=== PATIENT | male | born 1950 | race Caucasian/White ===

== ENCOUNTER → 2018-02-15 | Outpatient (CLI) | payer MEDICARE, OTHER ==
--- NOTE | 2018-02-15 15:41 | CT ---
EXAMINATION TYPE: CT lumbar spine wo con DATE OF EXAM: 02/15/2018 COMPARISON: HISTORY: pain lower back/ radiates down rt leg CT DLP: 2046.4 mGycm CONTRAST: None TECHNIQUE: CT of the lumbar spine is performed on a spiral scan at 3 mm thick sections. Reconstructed images are performed in the coronal and sagittal planes. FINDINGS: T12-L1: No focal disc herniation or significant disc bulge is evident. No spinal canal stenosis or neural foraminal stenosis is present. L1-L2: No focal disc herniation or significant disc bulge is evident. No spinal canal stenosis or n eural foraminal stenosis is present L2-L3: Inferior plate spurring is present at the L2 level. This has moderate anterior thecal sac comp ression. No AP spinal canal stenosis present. Facet degenerative changes are present. No foraminal na rrowing is present. L3-L4: Degenerative disc changes and vacuum disc phenomenon are present. No spinal canal stenosis is present. Facet degenerative changes present mild bilateral foraminal narrowing is present. L4-L5: No focal disc herniation or significant disc bulge is evident. No spinal canal stenosis or n eural foraminal stenosis is present L5-S1: There is loss of disc height L5-S1. No spinal canal stenosis or neural foraminal stenosis pres ent. Fixation screws are present L5-S1 levels. No spinal canal stenosis or neural foraminal stenosis is pr esent. Vertebral body heights are preserved. IMPRESSION: Moderate degenerative disc changes and vacuum disc phenomenon L3-4. 2 posterior endplate spurring wit h moderate anterior thecal sac compression L2-L3.
== END | disposition home or self-care (01) ==
LOC: RADCTMAIN 13:07
PROVIDERS: ATTEND Orthopaedic Surgery
DX: M47.816 Spondylosis without myelopathy or radiculopathy, lumbar region (principal); M46.06 Spinal enthesopathy, lumbar region
CPT/HCPCS: 72131

== ENCOUNTER → 2018-11-05 | Outpatient (CLI) | payer MEDICARE, OTHER ==
[2018-11-05 08:43] LABS: HCT 41.5 % (39.0-53.0); HGB 13.3 gm/dL (13.0-17.5); MCH 28.8 pg (25.0-35.0); MCHC 32.1 g/dL (31.0-37.0); MCV 89.5 fL (80.0-100.0); Mean Platelet Volume 6.6; Platelet Count 174 k/uL (150-450); RBC 4.64 m/uL (4.30-5.90); RDW 14.3 % (11.5-15.5); WBC 3.9 k/uL (3.8-10.6)
[2018-11-05 08:46] LABS: Appearance,Urine Clear (Clear); Bilirubin,Urine Negative (Negative); Blood,Urine Negative (Negative); Color,Urine Yellow; Glucose,Urine (UA) Negative (Negative); Ketones,Urine Negative (Negative); Leukocyte Esterase,Urine Negative (Negative); Nitrite,Urine Negative (Negative); PH, Urine 5.5 (5.0-8.0); Protein,Urine Negative (Negative); Specific Gravity,Urine 1.017 (1.001-1.035)
[2018-11-05 08:47] LABS: Partial Thromboplastin Time 25.7 sec (22.0-30.0); Prothrombin Time 10.7 sec (9.0-12.0)
[2018-11-05 08:53] LABS: ALT 43 U/L (21-72); AST 34 U/L (17-59); Albumin 4.1 g/dL (3.5-5.0); Alkaline Phosphatase 68 U/L (38-126); Anion Gap 6 mmol/L; Blood Urea Nitrogen 16 mg/dL (9-20); Calcium 9.4 mg/dL (8.4-10.2); Carbon Dioxide 28 mmol/L (22-30); Chloride 106 mmol/L (98-107); Glucose 94 mg/dL (74-99); Sodium 140 mmol/L (137-145); Total Bilirubin 1.2 mg/dL (0.2-1.3); Total Protein 6.1 g/dL (6.3-8.2)
== END | disposition home or self-care (01) ==
LOC: LABPAT 07:34
PROVIDERS: ATTEND Orthopaedic Surgery Sports Medicine
DX: Z01.812 Encounter for preprocedural laboratory examination (principal)
CPT/HCPCS: 36415; 80053; 81003; 85027; 85610; 85730; 87070

== ENCOUNTER → 2023-09-03 | Outpatient (CLI) | payer MEDICARE, OTHER ==
--- NOTE | 2023-09-03 14:32 | CT ---
EXAMINATION TYPE: CT chest wo con DATE OF EXAM: 09/03/2023 COMPARISON: None HISTORY: COUGH CT DLP: 1962 mGycm, Automated exposure control for dose reduction was used. CONTRAST: None TECHNIQUE: Axial images were obtained at 1 mm thick sections at 10 mm intervals. This will limit po rtions of the examination which may not be visualized within the [id number]. Images were obtained in the prone and supine views. FINDINGS: Portion of the thyroid visualized is normal. No suspicious lung nodules or focal infiltrat es are present. No enlarged mediastinal or hilar adenopathy is evident. The ascending aorta diameter at the level o f the main pulmonary artery is 3.7 cm. The main pulmonary artery diameter at the bifurcation is 2.[address] sections are obtained through the upper abdomen. Abdomen is essentially unremarkable. IMPRESSION: 1. No acute pulmonary process evident.
== END | disposition home or self-care (01) ==
LOC: RADCTMAIN 13:53
PROVIDERS: ATTEND Internal Medicine Critical Care Medicine
DX: J84.9 Interstitial pulmonary disease, unspecified (principal)
CPT/HCPCS: 71250

== ENCOUNTER 2024-11-06 12:36 | Emergency (ER) | payer MEDICARE, OTHER ==
--- NOTE | 2024-11-06 13:10 | ED ---
Extremity Problem HPI - General Chief complaint: Extremity Problem,Nontraumatic Stated complaint: R/O DVT-sent by urgent care Time Seen by Provider: 11/06/24 12:54 Source: patient, RN notes reviewed Mode of arrival: ambulatory Limitations: no limitations - History of Present Illness Initial comments: This is a 74-year-old male who presents to the emergency department for right leg pain and swelling. Patient states that this started a couple of days ago. He was sick with a UTI for about 3 days and was very sedentary in bed. He is still on antibiotics for the UTI. Believes that he is taking Keflex, but is not entirely sure. The pain and swelling started shortly after being sedentary. He has noticed some redness towards the ankle. States that he has had leg swelling before, however this is usually bilateral and this time it is only in the right leg. He initially went to urgent care and was advised to come here to rule out a DVT. Denies any history of blood clots. Not taking any blood thinners. Denies any chest pain or shortness of breath. MD Complaint: extremity pain, extremity swelling - Related Data Home Medications Medication Instructions Recorded Confirmed ALPRAZolam [Xanax] 0.25 mg PO BID PRN 11/04/18 11/06/24 Levothyroxine Sodium [Synthroid] 75 mcg PO DAILY 11/04/18 11/06/24 Cephalexin [Keflex] 1,000 mg PO Q12HR 11/06/24 11/06/24 Clindamycin Phosphate 1% Solution 1 applic TOPICAL DAILY 11/06/24 11/06/24 Co-Q-10 (Unknown Dose) 1 tab PO DAILY 11/06/24 11/06/24 Magnesium (Unknown Dose) 1 cap PO BID 11/06/24 11/06/24 RX: Trimethoprim 100 mg PO DAILY PRN 11/06/24 11/06/24 RX: Vitamin B Complex 1 cap PO BID 11/06/24 11/06/24 Vitamin D (Unknown Dose) 1 cap PO BID 11/06/24 11/06/24 Allergies Allergy/AdvReac Type Severity Reaction Status Date / Time shellfish derived [Shellfish] Allergy Swelling Verified 11/06/24 13:30 Review of Systems ROS Statement: Those systems with pertinent positive or pertinent negative responses have been documented in the HPI. ROS Other: All systems not noted in ROS Statement are negative. Past Medical History Past Medical History: Cancer, Hyperlipidemia, Osteoarthritis (OA), Pneumonia, Skin Disorder, Sleep Apnea/CPAP/BIPAP, Thyroid Disorder Additional Past Medical History / Comment(s): roseacea, acne, vitaligo, hx bladder cancer History of Any Multi-Drug Resistant Organisms: None Reported Past Surgical History: Back Surgery, Bladder Surgery, Tonsillectomy Additional Past Surgical History / Comment(s): spinal fusion, tumor removed from bladder, eloy cataracts Past Anesthesia/Blood Transfusion Reactions: Motion Sickness Past Psychological History: No Psychological Hx Reported Past Alcohol Use History: None Reported Past Drug Use History: None Reported - Past Family History Mother Family Medical History: Cancer General Exam Limitations: no limitations General appearance: alert, in no apparent distress Head exam: Present: atraumatic, normocephalic, normal inspection Respiratory exam: Present: normal lung sounds bilaterally. Absent: respiratory distress, wheezes, rales, rhonchi, stridor Cardiovascular Exam: Present: regular rate, normal rhythm Extremities exam: Present: other (Generalized swelling and tenderness to the right lower extremity with some erythema to the distal aspect of the right tib- fib. 2+ DP and PT pulses) Neurological exam: Present: alert, oriented X3, CN II-XII intact Psychiatric exam: Present: normal affect, normal mood Course Vital Signs 11/06/24 11/06/24 11/06/24 12:50 13:46 14:46 Temperature 97.9 F 98.2 F Pulse Rate 69 55 L 63 Respiratory 20 16 18 Rate Blood Pressure 167/80 131/66 135/60 O2 Sat by Pulse 98 98 99 Oximetry Medical Decision Making - Medical Decision Making This is a 74-year-old male who presents to the emergency department for right leg pain and swelling. Was pt. sent in by a medical professional or institution? @ -Urgent care Did you speak to anyone other than the patient for history? @ -No Did you review nursing and triage notes? @ -Yes, and I agree, it is accurate with regards to the patient's symptoms. Were old charts reviewed? @ -No Differential Diagnosis? @ -Differential Musculoskeletal Muscular strain, contusion, ligament sprain, fracture, arthritis, septic arthritis, bursitis, cellulitis, muscle spasm, nerve compression, DVT, arterial occlusion, herpes zoster, electrolyte abnormality, tumor.... This is not meant to be in all inclusive list EKG interpreted by me (3pts min.)? @ -Not obtained X-rays interpreted by me (1pt min.)? @ -Not obtained CT interpreted by me (1pt min.)? @ -Not obtained U/S interpreted by me (1pt. min.)? @ -Duplex ultrasound of the right lower extremity obtained. My interpretation identifies no evidence of a DVT. What testing was considered but not performed? (CT, X-rays, U/S, labs)? Why? @ -None What meds were considered but not given? Why? @ -None Did you discuss the management of the patient with other professionals? @ -No Did you reconcile home meds? @ -No Was smoking cessation discussed for >3mins.? @ -No Was critical care preformed (if so, how long)? @ -No Were there social determinants of health that impacted care today? How? (Homelessness, low income, unemployed, alcoholism, drug addiction, transportation, low edu. Level, literacy, decrease access to med. care, usp, rehab)? @ -No Was there de-escalation of care discussed even if they declined? (Discuss DNR or withdrawal of care, Hospice)? @ -No What co-morbidities impacted this encounter? (DM, HTN, Smoking, COPD, CAD, Cancer, CVA, Hep., AIDS, mental health diagnosis, sleep apnea, morbid obesity)? @ -Osteoarthritis Was patient admitted / discharged? @ -Discharged. Lab work unremarkable. Urinalysis negative for signs of infection. Duplex ultrasound of the right lower extremity demonstrates a Hill's cyst. No evidence of a DVT was visualized. He did have some erythema towards the ankle. Discussed the possibility of an early cellulitis, however he is already on Keflex for the UTI. Advised he continue taking the Keflex as prescribed. Also advised elevation, ice, and compression. If the redness, pain, or swelling worsens, this may be indicative of a cellulitis that needs different treatment. Advised follow-up with his PCP in the next couple of days. Patient discharged home in stable condition. Case discussed with ED attending Dr. Han. Return precautions reviewed in depth, the patient is instructed to return to the emergency department with any new, worsening, or concerning symptoms. Patient verbalized understanding. Undiagnosed new problem with uncertain prognosis? @ -None Drug Therapy requiring intensive monitoring for toxicity (Heparin, Nitro, Insulin, Cardizem)? @ -None Were any procedures done? @ -None Diagnosis/symptom? @ -Hill's cyst, right leg swelling Acute, or Chronic, or Acute on Chronic? @ -Acute Uncomplicated (without systemic symptoms) or Complicated (systemic symptoms)? @ -Uncomplicated Side effects of treatment? @ -None Exacerbation, Progression, or Severe Exacerbation] @ -Not applicable Poses a threat to life or bodily function? @ -No - Lab Data Result diagrams: 11/06/24 13:29 11/06/24 13:29 Lab Results 11/06/24 11/06/24 11/06/24 Range/Units 13:29 13: 13:29 WBC 5.26 (4.50-10.00) 10*3/uL RBC 4.87 (4.40-5.60) 10*6/uL Hgb 15.2 (13.0-17.0) g/dL Hct 43.4 (39.6-50.0) % MCV 89.1 (80.0-97.0) fL MCH 31.2 (27.0-32.0) pg MCHC 35.0 (32.0-37.0) g/dL Plt Count 188 (140-440) 10*3/uL MPV 9.3 L (9.5-12.2) fL Immature Gran % (Auto) 0.2 % Neutrophils % 65.4 % Lymphocytes % 22.4 % Monocytes % 9.5 % Eosinophils % 1.9 % Basophils % 0.6 % Immature Gran # 0.01 (0.00-0.04) 10*3/uL Neutrophils # 3.44 (1.80-7.70) 10*3/uL Lymphocytes # 1.18 (0.90-5.00) 10*3/uL Monocytes # 0.50 (0.20-1.00) 10*3/uL Eosinophils # 0.10 (0.04-0.35) 10*3/uL Basophils # 0.03 (0.00-0.10) 10*3/uL Sodium 138 (137-145) mmol/L Potassium 4.2 (3.5-5.1) mmol/L Chloride 103 (98-107) mmol/L Carbon Dioxide 27 (22-30) mmol/L Anion Gap 8 mmol/L BUN 17 (9-20) mg/dL Creatinine 0.91 (0.66-1.25) mg/dL Est GFR (CKD-EPI)AfAm >90 (>60 ml/min/1.73 sqM) Est GFR (CKD-EPI)NonAf 82 (>60 ml/min/1.73 sqM) Glucose 90 (74-99) mg/dL Plasma Lactic Acid Ishan (0.7-2.0) mmol/L Calcium 9.5 (8.4-10.2) mg/dL Total Bilirubin 1.1 (0.2-1.3) mg/dL AST 32 (17-59) U/L ALT 32 (4-49) U/L Alkaline Phosphatase 63 (38-126) U/L C-Reactive Protein 5.3 H (<1.0) mg/dL Total Protein 6.5 (6.3-8.2) g/dL Albumin 4.2 (3.5-5.0) g/dL Urine Color Light Yellow Urine Appearance Clear (Clear) Urine pH 5.0 (5.0-8.0) Ur Specific Howard 1.007 (1.001-1.035) Urine Protein Negative (Negative) Urine Glucose (UA) Negative (Negative) Urine Ketones Negative (Negative) Urine Blood Negative (Negative) Urine Nitrite Negative (Negative) Urine Bilirubin Negative (Negative) Urine Urobilinogen <2.0 (<2.0) mg/dL Ur Leukocyte Esterase Negative (Negative) 11/06/24 Range/Units 13:29 WBC (4.50-10.00) 10*3/uL RBC (4.40-5.60) 10*6/uL Hgb (13.0-17.0) g/dL Hct (39.6-50.0) % MCV (80.0-97.0) fL MCH (27.0-32.0) pg MCHC (32.0-37.0) g/dL Plt Count (140-440) 10*3/uL MPV (9.5-12.2) fL Immature Gran % (Auto) % Neutrophils % % Lymphocytes % % Monocytes % % Eosinophils % % Basophils % % Immature Gran # (0.00-0.04) 10*3/uL Neutrophils # (1.80-7.70) 10*3/uL Lymphocytes # (0.90-5.00) 10*3/uL Monocytes # (0.20-1.00) 10*3/uL Eosinophils # (0.04-0.35) 10*3/uL Basophils # (0.00-0.10) 10*3/uL Sodium (137-145) mmol/L Potassium (3.5-5.1) mmol/L Chloride (98-107) mmol/L Carbon Dioxide (22-30) mmol/L Anion Gap mmol/L BUN (9-20) mg/dL Creatinine (0.66-1.25) mg/dL Est GFR (CKD-EPI)AfAm (>60 ml/min/1.73 sqM) Est GFR (CKD-EPI)NonAf (>60 ml/min/1.73 sqM) Glucose (74-99) mg/dL Plasma Lactic Acid Ishan 1.3 (0.7-2.0) mmol/L Calcium (8.4-10.2) mg/dL Total Bilirubin (0.2-1.3) mg/dL AST (17-59) U/L ALT (4-49) U/L Alkaline Phosphatase (38-126) U/L C-Reactive Protein (<1.0) mg/dL Total Protein (6.3-8.2) g/dL Albumin (3.5-5.0) g/dL Urine Color Urine Appearance (Clear) Urine pH (5.0-8.0) Ur Specific Howard (1.001-1.035) Urine Protein (Negative) Urine Glucose (UA) (Negative) Urine Ketones (Negative) Urine Blood (Negative) Urine Nitrite (Negative) Urine Bilirubin (Negative) Urine Urobilinogen (<2.0) mg/dL Ur Leukocyte Esterase (Negative) - Radiology Data Radiology results: report reviewed, image reviewed Disposition Clinical Impression: Right leg swelling, Synovial cyst of popliteal space [Hill], right knee Disposition: HOME SELF-CARE Instructions (If sedation given, give patient instructions): Hill Cyst (ED), Leg Edema (ED) Additional Instructions: Return to the emergency department with any new, worsening, or concerning symptoms. Elevate the leg, continue to wear compression stockings, and you can also apply ice to the back of the knee. Anti-inflammatories like ibuprofen or naproxen can help with discomfort and swelling as well. If the redness, pain, or swelling gets worse this could be a sign that it is related to infection, in which case you need to make sure you are reevaluated. Otherwise continue taking the antibiotic you are currently on. Follow up with your primary care provider in 1-2 days. Is patient prescribed a controlled substance at d/c from ED?: No Referrals: Jaxon Valdez MD [Primary Care Provider] - 1-2 days Time of Disposition: 14:36
[2024-11-06 13:56] LABS: Basophils # (A) 0.03 10*3/uL (0.00-0.10); Basophils % (A) 0.6 %; Eosinophils % (A) 1.9 %; HCT 43.4 % (39.6-50.0); HGB 15.2 g/dL (13.0-17.0); Lymphocytes # (A) 1.18 10*3/uL (0.90-5.00); Lymphocytes % (A) 22.4 %; MCH 31.2 pg (27.0-32.0); MCV 89.1 fL (80.0-97.0); Mean Platelet Volume 9.3 fL (9.5-12.2); Monocytes % (A) 9.5 %; Neutrophils # (A) 3.44 10*3/uL (1.80-7.70); Neutrophils % (A) 65.4 %; Platelet Count 188 10*3/uL (140-440); RBC 4.87 10*6/uL (4.40-5.60); RDW 12.8 % (11.5-14.5); WBC 5.26 10*3/uL (4.50-10.00)
[2024-11-06 13:57] LABS: Appearance,Urine Clear (Clear); Bilirubin,Urine Negative (Negative); Blood,Urine Negative (Negative); Color,Urine Light Yellow; Glucose,Urine (UA) Negative (Negative); Ketones,Urine Negative (Negative); Leukocyte Esterase,Urine Negative (Negative); Nitrite,Urine Negative (Negative); Protein,Urine Negative (Negative); Specific Gravity,Urine 1.007 (1.001-1.035); Urobilinogen,Urine <2.0 mg/dL (<2.0)
[2024-11-06 14:19] LABS: ALT 32 U/L (4-49); AST 32 U/L (17-59); African American GFR (CKD) >90 (>60 ml/min/1.73 sqM); Albumin 4.2 g/dL (3.5-5.0); Alkaline Phosphatase 63 U/L (38-126); Anion Gap 8 mmol/L; Blood Urea Nitrogen 17 mg/dL (9-20); C Reactive Protein 5.3 mg/dL (<1.0); Calcium 9.5 mg/dL (8.4-10.2); Carbon Dioxide 27 mmol/L (22-30); Chloride 103 mmol/L (98-107); Glucose 90 mg/dL (74-99); Non-African American GFR(CKD) 82 (>60 ml/min/1.73 sqM); Potassium 4.2 mmol/L (3.5-5.1); Sodium 138 mmol/L (137-145); Total Bilirubin 1.1 mg/dL (0.2-1.3); Total Protein 6.5 g/dL (6.3-8.2)
--- NOTE | 2024-11-06 14:21 | US ---
EXAMINATION TYPE: US venous doppler duplex LE RT DATE OF EXAM: 11/06/2024 2:15 PM COMPARISON: NONE CLINICAL INDICATION: Male, 74 years old with history of Pain and swelling; Pt states right leg pain a nd swelling, Pain TECHNIQUE: The lower extremity deep venous system is examined utilizing real time linear array sonog janis with graded compression, color doppler sonography, and spectral doppler. SIDE PERFORMED: Right FINDINGS: VESSELS IMAGED: Common Femoral Vein Deep Femoral Vein Greater Saphenous Vein * Femoral Vein Popliteal Vein Small Saphenous Vein * Proximal Calf Veins (* superficial vessels) Right Leg: Negative for DVT, Color Doppler imaging shows patency of the vessels. Spectral waveforms are within normal limits. Cystic lesion right pop fossa= 4.1 x 1.1 x 3.7 cm. This is anechoic without internal color flow. IMPRESSION: 1. No evidence of deep vein thrombosis of the right lower extremity. 2. Right popliteal fossa Hill's cyst. [facility], , 11/06/2024 2:18 PM
[2024-11-06 14:47] VITALS: BP 135/60; PULSE 63; RESP 18; TEMP 98.2
== END 2024-11-06 14:47 | disposition home or self-care (01) ==
LOC: EC 12:36
DX: M71.21 Synovial cyst of popliteal space [Baker], right knee (principal); M19.90 Unspecified osteoarthritis, unspecified site; Z91.013 Allergy to seafood
CPT/HCPCS: 36415; 80053; 81003; 83605; 85025; 86140; 99284